=== PATIENT | male | born 1955 | race Caucasian/White ===

== ENCOUNTER 2023-07-16 23:23 | Inpatient (IN) | payer OTHER ==
[2023-07-17 00:36] LABS: Absolute Basophils 0.1 K/uL (0-0.5); Absolute Eosinophils 0.1 K/uL (0-0.5); Absolute Lymphocytes (CBC) 1.3 K/uL (0.7-4.9); Absolute Monocytes 0.7 K/uL (0.1-1.3); Absolute Neutrophil 11.3 K/uL (1.8-8.0); Basophils % 0.5 % (0-1.3); Eosinophils % 0.4 % (0-4.4); Hematocrit 38.5 % (39.6-49.0); Hemoglobin 13.2 g/dL (13.6-17.9); Lymphocytes % 9.5 % (15.3-44.8); MCH 30.7 pg (27.0-35.0); MCHC 34.4 g/dL (32.0-36.0); MCV 89.3 fL (80-100); MPV 7.1 fL (7.6-11.3); Monocytes % 5.2 % (3.3-12.3); Neutrophils % 84.4 % (41.7-73.7); Platelets 188 thou/uL (152-406); RBC Red Blood Cell Count 4.31 M/uL (4.33-5.43); Red Cell Distribution Width 13.6 % (12.1-15.2)
[2023-07-17 00:50] LABS: PT Prothrombin Time 12.2 SECONDS (9.5-12.5); Protime INR 1.11
[2023-07-17 01:02] LABS: Anion Gap 11.2 mEq/L (5.0-15.0); Bilirubin Direct 0.1 mg/dL (0-0.2); Bilirubin Indirect, Calculated 0.5 mg/dL (0.2-0.8); Bilirubin Total 0.6 mg/dL (0.2-1.0); Troponin High Sensitivity 12.6 pg/mL (<58.9)
[2023-07-17 01:03] LABS: Potassium 4.2 mEq/L (3.5-5.1)
[2023-07-17] MEDS ORDERED: MORPHINE 4 MG/ML SYR ONE (01:30)
[2023-07-17] MEDS ORDERED: NA CHLORIDE 0.9% 1,000 ML ONE (01:31)
[2023-07-17] MEDS ORDERED: HYDROMORPHONE HCL 1 MG/ML INJ ONE (03:32)
--- NOTE | 2023-07-17 03:49 | ER ---
Nurse's Notes [facility] Name: Ankit Lopez Age: 67 yrs Sex: Male : 1955 Arrival Date: 07/16/2023 Time: 23:23 Bed 4 Private MD: Diagnosis: Acute pancreatitis without necrosis or infection, unspecified Presentation: 07/15 23:36 Chief complaint: Patient states: I have been having upper abdominal pain all day today. jb4 It started before work, has stayed steady all day and wont go away. Coronavirus screen: At this time, the client does not indicate any symptoms associated with coronavirus-19. Ebola Screen: No symptoms or risks identified at this time. Initial Sepsis Screen: Does the patient meet any 2 criteria? HR > 90 bpm. Yes Does the patient have a suspected source of infection? No. Patient's initial sepsis screen is negative. Risk Assessment: Do you want to hurt yourself or someone else? Patient reports no desire to harm self or others. Onset of symptoms was July 16, 2023. Transition of care: patient was not received from another setting of care. 23:36 Method Of Arrival: Ambulatory jb4 23:36 Acuity: AMAURY 3 jb4 Historical: - Allergies: 23:38 PENICILLINS; jb4 - PMHx: 23:38 HTN; DM; Hyperthyroidism; jb4 - PSHx: 23:38 Tonsillectomy; jb4 - Immunization history:: Adult Immunizations up to date. - Infectious Disease History:: Denies. - Social history:: Smoking status: Patient denies any tobacco usage or history of. Screenin/04 00:22 [facility] ED Fall Risk Assessment (Adult) History of falling in the last 3 months, tm6 including since admission No falls in past 3 months (0 pts). Abuse screen: Denies threats or abuse. Denies injuries from another. Nutritional screening: No deficits noted. Tuberculosis screening: No symptoms or risk factors identified. Assessment: 00:22 General: Appears in no apparent distress. Behavior is calm, cooperative. Pain: tm6 Complains of pain in epigastric area, right upper quadrant and left upper quadrant Pain does not radiate. Pain currently is 5 out of 10 on a pain scale. Quality of pain is described as aching, Pain began 1 day ago. Neuro: No deficits noted. Level of Consciousness is awake, alert, obeys commands, Oriented to person, place, time, situation. Cardiovascular: No deficits noted. Capillary refill < 3 seconds Patient's skin is warm and dry. Rhythm is regular. Respiratory: No deficits noted. Airway is patent Respiratory effort is even, unlabored, Respiratory pattern is regular, symmetrical. GI: Abdomen is round non-distended, Bowel sounds present X 4 quads. Abd is soft and non tender X 4 quads. Reports upper abdominal pain, epigastric pain. : No signs and/or symptoms were reported regarding the genitourinary system. EENT: No signs and/or symptoms were reported regarding the EENT system. Derm: No signs and/or symptoms reported regarding the dermatologic system. Musculoskeletal: No signs and/or symptoms reported regarding the musculoskeletal system. 01:30 Reassessment: Patient appears in no apparent distress at this time. No changes from km8 previously documented assessment. Patient and/or family updated on plan of care and expected duration. Pain level reassessed. Patient is alert, oriented x 3, equal unlabored respirations, skin warm/dry/pink. 02:11 Reassessment: Patient appears in no apparent distress at this time. Patient and/or km8 family updated on plan of care and expected duration. Pain level reassessed. Patient is alert, oriented x 3, equal unlabored respirations, skin warm/dry/pink. Patient states symptoms have improved. 03:25 Reassessment: Patient and/or family updated on plan of care and expected duration. Pain tm6 level reassessed. Patient is alert, oriented x 3, equal unlabored respirations, skin warm/dry/pink. 05:14 Reassessment: report faxed to 2nd floor, confirmed by Sadie DOUGLAS. tm6 05:16 Reassessment: Patient appears in no apparent distress at this time. Patient and/or tm6 family updated on plan of care and expected duration. Pain level reassessed. Patient is alert, oriented x 3, equal unlabored respirations, skin warm/dry/pink. Vital Signs: 07/15 23:36 BP 150 / 88; Pulse 102; Resp 16; Temp 99.4(O); Pulse Ox 100% on R/A; Weight 99.79 kg jb4 (R); Height 6 ft. 2 in. ; Pain 5/10; 07/16 03:25 BP 143 / 74; Pulse 92; Pulse Ox 97% on R/A; Pain 5/10; tm6 05:16 BP 120 / 64; Pulse 89; Resp 19; Pulse Ox 99% on R/A; Pain 0/10; tm6 07/15 23:36 Body Mass Index 28.25 (99.79 kg, 187.96 cm) 4 07/15 23:36 Pain Scale: Adult 4 07/16 03:25 Pain Scale: Adult tm6 05:16 Pain Scale: Adult 6 ED Course: 07/15 23:28 Patient arrived in ED. jj6 23:38 Triage completed. jb4 23:38 Arm band placed on right wrist. jb4 23:41 Aidan Maki PA is PHCP. cp 23:41 Aidan Estrada MD is Attending Physician. cp 07/16 00:00 Murali Varghese, RN is Primary Nurse. tm6 00:21 EKG done, by ED staff, reviewed by Aidan Estrada MD. Inserted saline lock: 20 gauge in tm6 left antecubital area, using aseptic technique. 00:22 Patient has correct armband on for positive identification. Placed in gown. Bed in low tm6 position. Call light in reach. Side rails up X 1. Provided Education on: use of call briggs. Client placed on continuous cardiac and pulse oximetry monitoring. NIBP monitoring applied. manager night on. Pulse ox on. NIBP on. Door closed. Noise minimized. 00:22 Basic Metabolic Panel Sent. tm6 00:22 CBC with Diff Sent. tm6 00:22 LFT's Sent. tm6 00:22 Magnesium Sent. tm6 00:22 PT-INR Sent. tm6 00:22 Troponin HS Sent. tm6 00:22 Lipase Sent. tm6 00:27 XRAY Chest (1 view) In Process Unspecified. EDMS 01:23 CT Abd/Pelvis - Without Contrast In Process Unspecified. EDMS 01:32 US Abdomen Limited: gallbladder In Process Unspecified. EDMS 03:48 Mahin Brooks MD is Hospitalizing Provider. cp 05:15 No provider procedures requiring assistance completed. Patient admitted, IV remains in tm6 place. Administered Medications: 01:38 Drug: morphine IVP or IV 4 mg IVP once over 4 mins Route: IVP; Infused Over: 4 mins; km8 Site: left antecubital; 01:38 Drug: NS 0.9% IV 1000 ml IV at 999 ml/hr Per protocol; 1000 mL bolus Route: IV; Rate: km8 999 ml/hr; Site: left antecubital; 03:56 Follow up: Response: No adverse reaction; IV Status: Completed infusion; IV Intake: tm6 1000ml 03:56 Drug: HYDROmorphone IVP 1 mg IVP once Route: IVP; Site: left antecubital; tm6 03:56 Follow up: Response: Pain is decreased tm6 Medication: 00:22 VIS not applicable for this client. tm6 Intake: 03:56 IV: 1000ml; Total: 1000ml. tm6 Outcome: 03:49 Decision to Hospitalize by Provider. cp 05:15 Admitted to Med/surg accompanied by nurse, room 203, with chart, Report called to 6 Report faxed, confirmed by Sadie DOUGLAS 05:15 Condition: stable 05:15 Instructed on the need for admit, 05:54 Patient left the ED. km8 Signatures: Dispatcher [employer] EDMS Aidan Maki PA PA cp Wilfredo Conner, RN RN jb4 Elenita Berriosj6 Vivian Howell, RN RN km8 Murali Varghese RN RN tm6
--- NOTE | 2023-07-17 03:49 | EDPHYS ---
Physician Documentation [facility] Name: Ankit Lopez Age: 67 yrs Sex: Male : 1955 Arrival Date: 07/16/2023 Time: 23:23 Bed 4 Private MD: ED Aidan Kelley HPI: 07/16 00:00 This 67 yrs old Male presents to ER via Ambulatory with complaints of Abdominal Pain. cp 00:00 The patient presents with abdominal pain in the upper abdomen. Onset: The cp symptoms/episode began/occurred this morning. 00:00 The symptoms are described as constant, dull. cp 00:00 Associated signs and symptoms: Pertinent negatives: chest pain, constipation, diarrhea, cp dysuria, fever, vomiting. Historical: - Allergies: 07/15 23:38 PENICILLINS; jb4 - PMHx: 23:38 HTN; DM; Hyperthyroidism; jb4 - PSHx: 23:38 Tonsillectomy; jb4 - Immunization history:: Adult Immunizations up to date. - Infectious Disease History:: Denies. - Social history:: Smoking status: Patient denies any tobacco usage or history of. ROS: 07/16 00:05 Constitutional: Negative for body aches, chills, fever, poor PO intake, cp 00:05 Eyes: Negative for injury, pain, redness, and discharge, cp 00:05 ENT: Negative for drainage from ear(s), ear pain, sore throat, difficulty swallowing, difficulty handling secretions, 00:05 Cardiovascular: Negative for chest pain, edema, palpitations, 00:05 Respiratory: Negative for cough, shortness of breath, wheezing, 00:05 Abdomen/GI: Positive for abdominal pain, Negative for vomiting, diarrhea, constipation, black/tarry stool, rectal bleeding, 00:05 : Negative for urinary symptoms, testicular pain 00:05 Neuro: Negative for dizziness, headache, weakness, 00:05 All other systems are negative, Exam: 00:00 Constitutional: The patient appears in no acute distress, alert, awake, cp non-diaphoretic, non-toxic, well developed, well nourished, 00:00 Head/Face: Normocephalic, atraumatic. cp 00:00 Eyes: Periorbital structures: appear normal, Conjunctiva: normal, no exudate, no injection, Sclera: no appreciated abnormality, Lids and lashes: appear normal, bilaterally, 00:00 ENT: External ear(s): are unremarkable, Nose: is normal, Mouth: Lips: moist, Oral mucosa: pink and intact, moist, Posterior pharynx: is normal, airway is patent, no erythema, no exudate, 00:00 Chest/axilla: Inspection: normal, 00:00 Cardiovascular: Rate: tachycardic, Rhythm: regular, 00:00 Respiratory: the patient does not display signs of respiratory distress, Respirations: normal, no use of accessory muscles, no retractions, labored breathing, is not present, Breath sounds: are clear throughout, no decreased breath sounds, no stridor, no wheezing, 00:00 Abdomen/GI: Inspection: abdomen appears normal, Palpation: soft, in all quadrants, moderate abdominal tenderness, in the right upper quadrant, left upper quadrant and left lower quadrant, rebound tenderness, is not appreciated, involuntary guarding, is not appreciated, 00:00 Back: pain, that is mild, of the mid back area, ROM is normal, 00:00 Neuro: Orientation: to person, place \T\ time. Mentation: is normal, Motor: moves all fours, strength is normal, Sensation: is normal, 00:15 ECG was reviewed by the Attending Physician. cp Vital Signs: 07/15 23:36 BP 150 / 88; Pulse 102; Resp 16; Temp 99.4(O); Pulse Ox 100% on R/A; Weight 99.79 kg jb4 (R); Height 6 ft. 2 in. ; Pain 5/10; 07/16 03:25 BP 143 / 74; Pulse 92; Pulse Ox 97% on R/A; Pain 5/10; tm6 05:16 BP 120 / 64; Pulse 89; Resp 19; Pulse Ox 99% on R/A; Pain 0/10; tm6 07/15 23:36 Body Mass Index 28.25 (99.79 kg, 187.96 cm) 4 07/15 23:36 Pain Scale: Adult jb4 07/16 03:25 Pain Scale: Adult tm6 05:16 Pain Scale: Adult tm6 MDM: 07/15 23:41 Patient medically screened. cp 07/16 00:00 Differential diagnosis: appendicitis, cholecystitis, Cholelithiasis, diverticulitis, cp non-specific abd pain, pancreatitis, Peptic Ulcer Disease, Perf. Duodenal Ulcer, Perf. Gastric Ulcer, Pyelonephritis, Ureterolithiasis, urinary tract infection. 04:00 Data reviewed: vital signs, nurses notes, lab test result(s), EKG, radiologic studies, cp CT scan, plain films. 04:00 Management of patient was discussed with the following: Hospitalist: DR Brooks will cp admit after discussion. I considered the following discharge prescriptions or medication management in the emergency department Medications were administered in the Emergency Department. See MAR. Independent interpretation of the following test(s) in the Emergency Department EKG: See my EKG interpretation above. Care significantly affected by the following chronic conditions: Diabetes, Hypertension. Counseling: I had a detailed discussion with the patient and/or guardian regarding the historical points, exam findings, and any diagnostic results supporting the discharge/admit diagnosis, lab results, radiology results, the need for further work-up and treatment in the hospital. Response to treatment: the patient's symptoms have markedly improved after treatment, and as a result, I will admit patient. 07/15 23:56 Order name: Basic Metabolic Panel; Complete Time: 01:05 cp 07/16 01:06 Interpretation: Normal except: GLUC 150; BUN 24; CRE 1.64; GFR 46. cp 07/15 23:56 Order name: CBC with Diff; Complete Time: 01:05 cp 07/16 01:06 Interpretation: Normal except: WBC 13.40; RBC 4.31; HGB 13.2; HCT 38.5; MPV 7.1; PREM% cp 84.4; LYM% 9.5; NEUT A 11.3. 07/15 23:56 Order name: LFT's; Complete Time: 01:05 cp 07/16 01:06 Interpretation: Normal except: GLOB 4.0; A/G 1.0. cp 07/15 23:56 Order name: Magnesium; Complete Time: 01:05 cp 07/15 23:56 Order name: PT-INR; Complete Time: 01:05 cp 07/15 23:56 Order name: Troponin HS; Complete Time: 01:05 cp 07/15 23:56 Order name: Lipase; Complete Time: 01:05 cp 07/16 04:24 Order name: Urinalysis w/ reflexes EDMS 07/16 04:24 Order name: CBC with Automated Diff EDMS 07/16 04:24 Order name: CBC with Automated Diff EDMS 07/16 04:24 Order name: Comprehensive Metabolic Panel EDTX 07/16 04:24 Order name: Comprehensive Metabolic Panel EDTX 07/15 23:56 Order name: XRAY Chest (1 view) 07/16 01:09 Order name: CT Abd/Pelvis - Without Contrast cp 07/16 01:09 Order name: US Abdomen Limited: gallbladder 07/15 23:56 Order name: EKG; Complete Time: 23:57 cp 07/16 04:24 Order name: CONS Physician Consult EDTX 07/15 23:56 Order name: Cardiac monitoring; Complete Time: 00:21 cp 07/15 23:56 Order name: EKG - Nurse/Tech; Complete Time: 00:21 cp 07/15 23:56 Order name: IV Saline Lock; Complete Time: 00:21 cp 07/15 23:56 Order name: Labs collected and sent; Complete Time: 00:21 cp 07/15 23:56 Order name: O2 Per Protocol; Complete Time: 00:21 cp 07/15 23:56 Order name: O2 Sat Monitoring; Complete Time: 00:21 cp EC:15 Rate is 92 beats/min. Rhythm is regular. NJ interval is prolonged at 220 msec. QRS cp interval is prolonged at 146 msec. QT interval is normal. T waves are Inverted in lead aVR. Interpreted by me. Reviewed by me. Administered Medications: 01:38 Drug: morphine IVP or IV 4 mg IVP once over 4 mins Route: IVP; Infused Over: 4 mins; km8 Site: left antecubital; 01:38 Drug: NS 0.9% IV 1000 ml IV at 999 ml/hr Per protocol; 1000 mL bolus Route: IV; Rate: km8 999 ml/hr; Site: left antecubital; 03:56 Follow up: Response: No adverse reaction; IV Status: Completed infusion; IV Intake: tm6 1000ml 03:56 Drug: HYDROmorphone IVP 1 mg IVP once Route: IVP; Site: left antecubital; tm6 03:56 Follow up: Response: Pain is decreased tm6 Disposition Summary: 07/17/23 03:49 Hospitalization Ordered Notes: Hospitalization Status: Inpatient Admission cp Provider: Mahin Brooks cp Condition: Stable cp Problem: new cp Symptoms: have improved cp Bed/Room Type: Standard cp Location: Telemetry/MedSurg (Inpatient)(07/17/23 05:03) Room Assignment: 203(07/17/23 05:03) Diagnosis - Acute pancreatitis without necrosis or infection, unspecified cp Forms: - Medication Reconciliation Form cp - SBAR form cp - Leadership Thank You Letter cp Signatures: Dispatcher [employer] EDMS Radha Torres RN RN Aidan Tenorio PA PA cp Wilfredo Conner RN RN jb4 Angeline Holloway 1 Vivian Howell RN RN km8 Murali Varghese, RN RN tm6 Corrections: (The following items were deleted from the chart) 07/15 23:57 23:57 BASIC METABOLIC PANEL+C.LAB.BRZ ordered. EDMS EDMS 23:57 23:57 CBC+H.LAB.BRZ ordered. EDMS EDMS 23:57 23:57 HEPATIC FUNCTION+C.LAB.BRZ ordered. EDMS EDMS 23:57 23:57 MAGNESIUM+C.LAB.BRZ ordered. EDMS EDMS 23:57 23:57 PROTIME (+INR)+COAG.LAB.BRZ ordered. EDMS EDMS 23:57 23:57 Troponin High Sensitivity+C.LAB.BRZ ordered. EDMS EDMS 23:57 23:57 LIPASE+C.LAB.BRZ ordered. EDMS EDMS 07/16 04:52 03:49 Telemetry/MedSurg (Inpatient) cp rv1 04:52 03:49 cp rv1 05:03 04:52 [facility] ER HOLD rv1 kl 05:03 04:52 ERHOLD- rv1 kl
[2023-07-17] MEDS ORDERED: ONDANSETRON 4 MG/2 ML VIAL IV PRN (04:19)
[2023-07-17] MEDS ORDERED: PIPER TAZO 3.375 GM in NA CHLORIDE 0.9% 100 ML IV SCH (04:22)
--- NOTE | 2023-07-17 04:24 | P.HP ---
Certification for Inpatient Patient admitted to: Observation With expected LOS: <2 Midnights Practitioner: I am a practitioner with admitting privileges, knowledge of patient current condition, hospital course, and medical plan of care. Services: Services provided to patient in accordance with Admission requirements found in Title 42 Section 412.3 of the Code of Federal Regulations Patient History Date of Service: 07/17/23 Reason for admission: Abdominal Pain History of Present Illness: 67 yrs old Male with past medical history of hypertension, diabetes, hypothyroidism came to ER with right upper quadrant abdominal pain which has been going on for the last 2 days and has been progressively worsening and was brought to ER. Pain started insidiously located in the right upper quadrant, constant dull aching pain. 4 out of 10 in severity. Nonradiating. Associated with nausea but no vomiting. Denies any chest pain or shortness of breath. No fever or chills. No sick contacts. Denies any dysuria. Patient was assessed in the ER and was admitted for further management CT and ultrasound abdomen was suggestive of possible cholecystitis Allergies Penicillins Allergy (Verified 07/17/23 04:49) Hives/Rash - Past Medical/Surgical History Past Medical History: Reviewed- Non-Contributory -: Hypertension, diabetes, hypothyroidism Past Surgical History: Reviewed- Non-Contributory -: Tonsillectomy - Family History Family History: Reviewed- Non-Contributory - Social History Smoking Status: Never smoker Review of Systems 10-point ROS is otherwise unremarkable Physical Examination - Vital Signs Temperature: 98.2 F Blood Pressure: 128/76 Pulse: 78 Respirations: 18 Pulse Ox (%): 94 - Physical Exam General: Alert, In no apparent distress, Oriented x3, Cooperative HEENT: Atraumatic, Normocephalic Neck: Supple, 2+ carotid pulse no bruit, No LAD Respiratory: Clear to auscultation bilaterally, Normal air movement Cardiovascular: Regular rate/rhythm, Normal S1 S2, No gallops Capillary refill: <2 Seconds Gastrointestinal: Non-distended, W/out hepatosplenomegaly, Tenderness (RUQ tenderness ) Musculoskeletal: No clubbing, No swelling Integumentary: No rashes, No breakdown Neurological: Normal speech, Normal strength at 5/5 x4 extr, Cranial nerves 3-12 intact, Normal reflexes 2+ Lymphatics: No axilla or inguinal lymphadenopathy - Studies Laboratory Data (last 24 hrs) 07/17/23 07/17/23 07/17/23 00:00 00:00 00:00 WBC 13.40 H Hgb 13.2 L Hct 38.5 L Plt Count 188 PT 12.2 INR 1.11 Sodium 137 Potassium 4.2 BUN 24 H Creatinine 1.64 H Glucose 150 H Magnesium 2.0 Total Bilirubin 0.6 AST 15 ALT 28 Alkaline Phosphatase 65 Lipase 307 H Assessment and Plan - Problems (Diagnosis) (1) Acute cholecystitis Current Visit: Yes Status: Acute Plan: Acute cholecystitis N.p.o. for now IV hydration Started on IV antibiotic Monitor closely Surgical consult CT abdomen pelvis as well as ultrasound findings noted Pancreatitis IVF Lipase trended Diabetes Insulin sliding scale Accu-Chek before every meal and at bedtime Acute kidney injury Possibly dehydration Will start on IV fluids Monitor renal parameters Hypertension Antihypertensives titrated GI/DVT prophylaxis Full Code Discharge Plan: Home Plan to discharge in: 48 Hours - Advance Directives Does patient have a Living Will: No Does patient have a Durable POA for Healthcare: No - Code Status/Comfort Care Code Status: Full Code Time Spent Managing Pts Care (In Minutes): 48
[2023-07-17] MEDS: NA CHLORIDE 0.9% 1,000 ML IV SCH ×3 (06:31→23:38)
[2023-07-17] MEDS: Levofloxacin 750mg IV 750 MG/150 ML BAG IV SCH (06:31)
--- NOTE | 2023-07-17 07:08 | P.DS ---
Admission Date: 07/17/23 Discharge Date: 07/17/23 Disposition: ROUTINE DISCHARGE Discharge Condition: GOOD Reason for Admission: Abdominal Pain Brief History of Present Illness: 67 yrs old Male with past medical history of hypertension, diabetes, hypothyroidism came to ER with right upper quadrant abdominal pain which has been going on for the last 2 days and has been progressively worsening and was brought to ER. Pain started insidiously located in the right upper quadrant, constant dull aching pain. 4 out of 10 in severity. Nonradiating. Associated with nausea but no vomiting. Denies any chest pain or shortness of breath. No fever or chills. No sick contacts. Denies any dysuria. Patient was assessed in the ER and was admitted for further management. CT and ultrasound abdomen was suggestive of possible cholecystitis Physical Exam General: Alert, In no apparent distress, Oriented x3, Cooperative HEENT: Atraumatic, Normocephalic Neck: Supple, 2+ carotid pulse no bruit, No LAD Respiratory: Clear to auscultation bilaterally, Normal air movement Cardiovascular: Regular rate/rhythm, Normal S1 S2, No gallops Capillary refill: <2 Seconds Gastrointestinal: Non-distended, W/out hepatosplenomegaly, Tenderness (RUQ tenderness ) Musculoskeletal: No clubbing, No swelling Integumentary: No rashes, No breakdown Neurological: Normal speech, Normal strength at 5/5 x4 extr, Cranial nerves 3-12 intact, Normal reflexes 2+ Lymphatics: No axilla or inguinal lymphadenopathy Hospital Course: 67-year-old male with past medical history of hypertension, diabetes, hypothyroidism came to ER with right upper quadrant abdominal pain. Was noted to have acute cholecystitis. He was evaluated by surgery. Condition improved with surgical evaluation. Patient tolerating diet, stable for discharge to home with follow-up appointment with primary care physician. Follow-up with surgery after discharge PROBLEM: Right upper quadrant abdominal pain treated with as needed and Acute cholecystitis evaluated by surgery Dr. Thompson to evaluate Acute kidney injury treated with IV fluid unknown based Leukocytosis secondary to acute cholecystitis treated with IV antibiotic Rad/Lab/Micro: CT and ultrasound abdomen was suggestive of possible cholecystitis Follow-up with surgery after discharge Continue home medicines as previously prescribed GOAL: Clear understanding of disease process INSTRUCTIONS: Physician Discharge Instructions: -Follow-up with PCP in 1 to 2 weeks -Please call Dr. Hart at [phone] if any questions regarding hospital stay -Please call nursing station at [phone] if any nursing or medication questions -Return to the emergency room if symptoms worsen Diet: ADA, low sodium Activity: Fall precautions Vital Signs/Physical Exam: Temp Pulse Resp BP Pulse Ox 98.2 F 89 19 120/64 94 07/17/23 05:00 07/17/23 05:16 07/17/23 05:16 07/17/23 05:16 07/17/23 05:00 Laboratory Data at Discharge: WBC 13.40 thou/uL (4.3-10.9) H 07/17/23 00:00 Hgb 13.2 g/dL (13.6-17.9) L 07/17/23 00:00 Hct 38.5 % (39.6-49.0) L 07/17/23 00:00 Plt Count 188 thou/uL (152-406) 07/17/23 00:00 PT 12.2 SECONDS (9.5-12.5) 07/17/23 00:00 INR 1.11 07/17/23 00:00 Sodium 137 mEq/L (136-145) 07/17/23 00:00 Potassium 4.2 mEq/L (3.5-5.1) 07/17/23 00:00 BUN 24 mg/dL (7-18) H 07/17/23 00:00 Creatinine 1.64 mg/dL (0.70-1.30) H 07/17/23 00:00 Glucose 150 mg/dL (74-106) H 07/17/23 00:00 Magnesium 2.0 mg/dL (1.6-2.4) 07/17/23 00:00 Total Bilirubin 0.6 mg/dL (0.2-1.0) 07/17/23 00:00 AST 15 U/L (15-37) 07/17/23 00:00 ALT 28 U/L (16-61) 07/17/23 00:00 Alkaline Phosphatase 65 U/L (45-117) 07/17/23 00:00 Lipase 307 U/L (13-75) H 07/17/23 00:00 Followup: Ankit Pickett MD [Primary Care Provider] - Time spent managing pt's care (in minutes): 55
[2023-07-17] MEDS: METRONIDAZOLE 500mg IVPB 500 MG/100 ML BAG IV SCH (09:18)
[2023-07-17] MEDS ORDERED: HYDROMORPHONE HCL 0.5 MG/0.5 ML INJ IV PRN (09:19)
[2023-07-17] MEDS: ENOXAPARIN 40 MG/0.4 ML SQ SCH (09:19)
[2023-07-17] MEDS ORDERED: GLUCAGON 1 MG/VIAL IM PRN (09:20)
[2023-07-17] MEDS ORDERED: D50W 25 GM/50 ML SYRINGE IV PRN (09:20)
[2023-07-17 10:31] LABS: Urine Bilirubin NEGATIVE (Negative); Urine Blood Negative (Negative); Urine Clarity Clear (Clear); Urine Color Colorless (Yellow); Urine Glucose 4+ (Over) (Negative); Urine Ketones TRACE (Negative); Urine Microscopic Reflex YN NO UMIC; Urine Nitrite NEGATIVE (Negative); Urine Protein NEGATIVE (Negative); Urine Urobilinogen Normal (Normal); Urine pH 5.5 (5.0-7.0)
[2023-07-17] MEDS: INSULIN REGULAR (HUMAN) 100 UNIT/ML SQ SCH ×2 (11:30→16:30)
--- NOTE | 2023-07-17 11:41 | P.PN ---
Date of Service: 07/17/23 Patient was seen and examined. Mr. Ankit Frank presented to the emergency room with abdominal pain. His workup revealed mild elevation of the lipase level and CT scan showed some minimal peripancreatic stranding suggestive of acute pancreatitis. There was no gallbladder wall distention or common bile duct dilatation. Patient does have sludge in the gallbladder. LFTs are within normal limits. Patient with type 2 diabetes and recently started Ozempic. Patient was on the lowest dose possible and has been on it for 9 weeks. This is the most likely etiology of patient's mild pancreatitis. Will recommend stopping GLP-1 agonist for the time being. Patient's pain is minimal and we will go ahead and start him on full liquid diet. Patient can follow-up with surgery as an outpatient as needed. Assessment: 1. Pancreatitis secondary to GLP-1 agonist; continue with aggressive IV hydration. DC Ozempic. Will start on clear liquid diet and advance as tolerated. 2. Hypertension/type 2 diabetes; this is probably in the setting of metabolic syndrome. Continue with weight loss and diet control. Anticipate outpatient follow-up in 1 to 2 weeks.
--- NOTE | 2023-07-17 14:00 | CON ---
Date of Consultation: 07/17/2023 Diagnosis: Acute pancreatitis. History Of Present Illness: This is a case of a 67-year-old patient, who comes with epigastric pain for about 2 days of duration and came to the ER as soon as he was not getting better and diagnosed wi th acute pancreatitis on imaging and blood work. During the workup, he was found to have sludge in t he gallbladder and they asked me to see the patient for that problem. Something of concern is that arpita rodrigues started taking Ozempic a little than more than a month ago and then he started having these issues with epigastric pain. He denies any dysuria, hematuria, hematochezia, melena. Denies any traveling o ut of the country. Denies any family member sick at home. Denies any alcohol intake. Allergies: PENICILLIN. Family History: Noncontributory. Social History: He does not smoke. He does not drink alcohol. Past Surgical History: Tonsillectomy. Physical Examination: General: The patient is awake and alert. HEENT: Pupils are equal and reactive. Anicteric. Neck: Supple. Chest: Clear. Heart: S1, S2. Abdomen: Epigastric mild tenderness. No guarding or rebound. Extremities: Good capillary refill. Laboratory Data: Blood work shows a WBC count of 13.4 with a hematocrit of 38.5, platelets of 188. INR is 1.1, creatinine is 1.64, glucose 150, lipase 307. LFTs within normal limits. Calcium 9.1. U ltrasound and CAT scan of the abdomen and pelvis reflected pancreatic inflammation and sludge, but no gallbladder thickening or cholecystitis. Assessment: This is a 67-year-old patient with acute pancreatitis. Etiology is unknown, does not se em to be related to the gallbladder at this moment. LFTs are normal. There is no pericholecystic fl uid. No swelling of the gallbladder. Does have some sludge in that region. Lipase is elevated. In somnia of concern. He has a new medication, which is Ozempic recently, so the medical doctors are aamir thorpe to see if there is any relation with this and the medication. From the surgical standpoint, nash latricia though we are going to expect surgery at this moment, he is still advised to come to my office, so we can discuss gallbladder disease, sludge with options we have for those and trying to differentiate the pain caused by the gallbladder versus pain caused by the pancreas itself. GIRMA/SHANIQUA Voice ID: [id number] Report ID: [id number]
[2023-07-17 15:08] VITALS: O2SAT 96
[2023-07-17] MEDS: ACETAMINOPHEN 325 MG TABLET PO PRN (20:01)
[2023-07-17] MEDS: TAMSULOSIN 0.4 MG SR CAP PO SCH (20:02)
[2023-07-17] MEDS: METOPROLOL TAR 25 MG TAB PO SCH (20:02)
[2023-07-17] MEDS: ATORVASTATIN 10 MG TAB PO SCH (20:02)
--- NOTE | 2023-07-17 22:57 | RAD REPORT ---
EXAM DESCRIPTION: CT - Abdomen Pelvis Wo Contrast - 07/17/2023 10:38 am CLINICAL HISTORY: 67 years Male; ABD PAIN; NO CONTRAST Bed Name: 4 TECHNIQUE: CT of the abdomen and pelvis without contrast. All CT scans at this facility use dose modulation, iterative reconstruction, and/or weight based dosi ng when appropriate to reduce radiation dose to as low as reasonably achievable. COMPARISON: None. FINDINGS: Lower thorax: Bibasilar atelectasis. Abdomen: Stomach: Within normal limits Liver: No focal lesions. No intrahepatic ductal distention. Gallbladder: Nondistended Pancreas: Mild stranding surrounding the pancreas. Spleen: Within normal limits Right kidney: No hydronephrosis. No renal or ureteral calculi. Left kidney: No hydronephrosis. No renal or ureteral calculi. Adrenal glands: Within normal limits Vascular structures: Atherosclerosis of the abdominal aorta and major branches. Lymph nodes: No lymphadenopathy by size criteria Pelvis: Small bowel: No significant distention. Appendix: Within normal limits Colon: No distention or acute pericolonic edema. Peritoneum: No free intraperitoneal fluid or air. Bones: No acute bone findings. Bladder: Unremarkable. Reproductive organs: No acute findings. Soft tissues: Moderate right and small left fat-containing inguinal hernias. IMPRESSION: Mild stranding surrounding the pancreas, can be seen in setting of acute pancreatitis. C orrelate with amylase/lipase levels. Electronically signed by: Alonzo Fontaine MD 07/17/2023 03:28 AM CDT Due to temporary technical issues with the PACS/Fluency reporting system, reports are being signed by the in house radiologists without review as a courtesy to insure prompt reporting. The interpreting radiologist is fully responsible for the content of the report.
--- NOTE | 2023-07-17 22:58 | RAD REPORT ---
EXAM DESCRIPTION: RAD - Chest Single View - 07/17/2023 12:25 am CLINICAL HISTORY: The patient is 67 years old and is Male; upper abdomen pain TECHNIQUE: Frontal view of the chest. COMPARISON: No relevant prior studies available. FINDINGS: Lungs: Unremarkable. No consolidation. Pleural space: Unremarkable. No pneumothorax. Heart: Unremarkable. Mediastinum: Unremarkable. Normal mediastinal contour. Bones/joints: No acute findings. IMPRESSION: No acute findings in the chest. Electronically signed by: Flaco Mckeon MD 07/17/2023 01:57 AM CDT Due to temporary technical issues with the PACS/Fluency reporting system, reports are being signed by the in house radiologists without review as a courtesy to insure prompt reporting. The interpreting radiologist is fully responsible for the content of the report.
--- NOTE | 2023-07-17 23:00 | RAD REPORT ---
EXAM DESCRIPTION: US - Abdomen Exam Limited - 07/17/2023 1:30 am US Abdomen Limited, Gallbladder CLINICAL HISTORY: The patient is 67 years old and is Male; upper abdomen pain Bed Name: 4 TECHNIQUE: Real-time ultrasound of the right upper quadrant with image documentation. COMPARISON: 07/17/2023 CT abdomen pelvis without contrast FINDINGS: GALLBLADDER: Minimal sludge demonstrated within the gallbladder fossa. No gallbladder wall thickening or surrounding free fluid. No posterior shadowing stones. COMMON BILE DUCT: Unremarkable as visualized. No stones. No dilation. Common bile duct measures 0.6 cm in diameter. IMPRESSION: Minimal gallbladder sludge. Otherwise, no acute findings in the right upper quadrant. Electronically signed by: Miguel A Aguilar MD 07/17/2023 03:34 AM CDT Due to temporary technical issues with the PACS/Fluency reporting system, reports are being signed by the in house radiologists without review as a courtesy to insure prompt reporting. The interpreting radiologist is fully responsible for the content of the report.
[2023-07-18 04:40] VITALS: BMI 28.1
[2023-07-18 07:21] LABS: Albumin 3.1 g/dL (3.4-5.0); Albumin/Globulin Ratio 0.9 (1.1-1.8); Anion Gap 7.7 mEq/L (5.0-15.0); Bilirubin Total 0.9 mg/dL (0.2-1.0); Globulin 3.3 g/dL (2.3-3.5); Potassium 3.7 mEq/L (3.5-5.1); Protein, Total 6.4 g/dL (6.4-8.2)
[2023-07-18] MEDS: NA CHLORIDE 0.9% 1,000 ML IV SCH (07:31)
[2023-07-18 08:19] LABS: Hematocrit 33.3 % (39.6-49.0); Hemoglobin 11.1 g/dL (13.6-17.9); MCH 30.1 pg (27.0-35.0); MCHC 33.3 g/dL (32.0-36.0); MCV 90.4 fL (80-100); Platelets 124 thou/uL (152-406); RBC Red Blood Cell Count 3.68 M/uL (4.33-5.43); Red Cell Distribution Width 13.3 % (12.1-15.2)
[2023-07-18 08:20] LABS: Absolute Lymphocytes (CBC) 1.3 K/uL (0.7-4.9); Absolute Monocytes 0.8 K/uL (0.1-1.3); Basophils % 0.4 % (0-1.3); Eosinophils % 0.2 % (0-4.4); Lymphocytes % 11.4 % (15.3-44.8); Monocytes % 7.4 % (3.3-12.3); Neutrophils % 80.6 % (41.7-73.7)
--- NOTE | 2023-07-18 08:27 | P.PN ---
Subjective Date of Service: 07/18/23 Chief Complaint: Abdominal Pain N.p.o. for surgery eval, pain control as needed analgesia - Physical Exam General: Alert, In no apparent distress, Oriented x3, Obese HEENT: Atraumatic, Normocephalic Neck: Supple, JVD not distended Respiratory: Clear to auscultation bilaterally, Normal air movement Cardiovascular: No edema, Normal pulses Capillary refill: <2 Seconds Gastrointestinal: Hypoactive, Other (Obese, large abdominal hernia), Tenderness Musculoskeletal: No swelling, No contractures Integumentary: No breakdown, No significant lesion Neurological: Normal speech, Normal strength at 5/5 x4 extr Review of Systems Per HPI Physical Examination - Vital Signs Temperature: 99.3 F Blood Pressure: 120/65 Pulse: 85 Respirations: 16 Pulse Ox (%): 98 Assessment And Plan - Plan Assessment and Plan Acute cholecystitis Abdominal pain Leukocytosis improving N.p.o. for now IV hydration Started on IV antibiotic Monitor closely Surgical consult-Dr. Thompson CT abdomen pelvis as well as ultrasound findings noted On Ozempic, needs to follow-up with surgery to discuss abdominal pain on Ozempic CT of the abdomen pelvis IMPRESSION: Mild stranding surrounding the pancreas, can be seen in setting of acute pancreatitis. Correlate with amylase/lipase levels. Abdominal ultrasound IMPRESSION: Minimal gallbladder sludge. Otherwise, no acute findings in the right upper quadrant. Pancreatitis Breast IV fluid Lipase trended Lipase 633, trend Diabetes Insulin sliding scale Accu-Chek before every meal and at bedtime UA positive for glucosuria, trace ketone Acute kidney injury Possibly dehydration Will start on IV fluids Monitor renal parameters Hypertension Antihypertensives titrated GI/DVT prophylaxis Full Code Discharge Plan: Home - Code Status/Comfort Care Code Status: Full Code Critical Care: No Time Spent Managing PTS Care (In Minutes): 35
[2023-07-18] MEDS: **PT MED**Dapagliflozin Propanediol [Farxiga] 10 MG Tablet PO SCH (09:00)
[2023-07-18 09:23] LABS: Band Neutrophils 4 % (0-1); Blood Morphology Comment NOT SEEN (NOT SEEN); Differential Total Cells Count 100; Dohle Bodies PRESENT; Eosinophils 1 % (0-3); Lymphocytes 14 % (15-42); Monocytes 3 % (0-10); Platelet Estimate DECR; Segmented Neutrophils 78 % (40-80); White Blood Cell Scan OK (OK)
[2023-07-18] MEDS: lisinopriL 20 MG TAB PO SCH (09:29)
[2023-07-18] MEDS: glyBURIDE 2.5 MG TAB PO SCH (09:30)
[2023-07-18] MEDS: LEVOTHYROXINE SOD 0.125 MG TAB PO SCH (09:30)
[2023-07-18 12:03] LABS: Albumin/Globulin Ratio 0.8 (1.1-1.8); Anion Gap 7.5 mEq/L (5.0-15.0); Bilirubin Total 0.6 mg/dL (0.2-1.0); Globulin 3.6 g/dL (2.3-3.5); Magnesium 2.1 mg/dL (1.6-2.4); Potassium 3.5 mEq/L (3.5-5.1); Protein, Total 6.6 g/dL (6.4-8.2)
[2023-07-18] MEDS: POTASS/SODIUM PHOSPHATE 1 PKT POWD.PACK PO ONE (12:47)
[2023-07-18 13:10] VITALS: BP 121/64; TEMP 97.6
--- NOTE | 2023-07-19 14:44 | EKG ---
Test Date: 2023-07-17 Test Time: 00:09:57 Process Maintenance Technician: ELIZABET MEASUREMENT RESULTS: Intervals: Rate: 92 WV: 220 QRSD: 146 QT: 390 QTc: 482 Hollister: P: 78 WV: 220 QRS: -61 T: 31 INTERPRETIVE STATEMENTS: Sinus rhythm with 1st degree AV block Right bundle branch block Left anterior fascicular block Bifascicular block Abnormal ECG No previous ECG available for comparison Electronically Signed On 07-19-23 14:39:31 CDT by Jonathan Ware
== END 2023-07-18 16:43 | disposition home or self-care (01) | DRG 439 ==
LOC: ER 23:23 → ERHOLD 07-17 04:19 → 2ND 07-17 05:47
PROVIDERS: ADMIT Family Medicine; ATTEND Hospitalist
DX: K85.90 Acute pancreatitis without necrosis or infection, unspecified (principal); N17.9 Acute kidney failure, unspecified; E11.9 Type 2 diabetes mellitus without complications; E03.9 Hypothyroidism, unspecified; I10 Essential (primary) hypertension; Z88.0 Allergy status to penicillin
CPT/HCPCS: 36415; 71045; 74176; 76705; 80048; 80053; 80061; 80076; 81003; 82947; 83690; 83735; 84100; 84145; 84484; 85025; 85610; 93005; 96361; 96374; 96375; 99285; J1170; J1650; J7030

== ENCOUNTER 2025-01-06 15:21 | Emergency (ER) | payer OTHER ==
[2025-01-06 16:52] LABS: Absolute Lymphocytes (CBC) 1.6 K/uL (0.7-4.9); Hematocrit 37.9 % (39.6-49.0); Hemoglobin 12.8 g/dL (13.6-17.9); MCH 29.9 pg (27.0-35.0); MCHC 33.7 g/dL (32.0-36.0); MCV 88.8 fL (80-100); MPV 7.2 fL (7.6-11.3); Nucleated RBC Absolute Count 0.0 (0-0); Nucleated Red Blood Cells % 0.1 % (0-0); RBC Red Blood Cell Count 4.27 M/uL (4.33-5.43); White Blood Count 8.60 thou/uL (4.3-10.9)
--- NOTE | 2025-01-06 16:55 | RAD REPORT ---
EXAM:Extremity Venous Uni Ltd HISTORY: Left leg pain TECHNIQUE: Sonographic evaluation left lower extremity performed.Grayscale, color and spectral analys is performed on all vessels COMPARISON: None. FINDINGS: Echogenic material consistent with acute thrombus is present within the left common femoral, left gre ater saphenous, left superficial femoral and left popliteal veins. Most of the thrombus is occlusive. Left posterior tibial vein patent IMPRESSION: Extensive acute thrombus left lower extremity
[2025-01-06 17:04] LABS: PT Prothrombin Time 12.8 SECONDS (10-13.0); PTT, Activated Partial Thromb 29.0 SECONDS (27.2-37.4); Protime INR 1.14
[2025-01-06] MEDS ORDERED: APIXABAN 5 MG TABLET ONE (17:13)
[2025-01-06 17:23] LABS: ALT/SGPT 22.0 U/L (16-61); Albumin 3.9 g/dL (3.4-5.0); Albumin/Globulin Ratio 1.0 (1.1-1.8); Alkaline Phosphatase 66.0 U/L (45-117); Anion Gap 10.2 mEq/L (5.0-15.0); BUN Blood Urea Nitrogen 38.0 mg/dL (7-18); Globulin 4.1 g/dL (2.3-3.5); Glucose Level 119.0 mg/dL (74-106)
[2025-01-06 17:25] LABS: AST/SGOT 28.0 U/L (15-37); Potassium 5.2 mEq/L (3.5-5.1)
--- NOTE | 2025-01-06 17:44 | ER ---
Nurse's Notes [facility] Name: Ankit Lopez Age: 69 yrs Sex: Male : 1955 Arrival Date: 01/06/2025 Time: 15:21 Bed 4 Private MD: Diagnosis: Acute embolism and thrombosis of unspecified deep veins of left lower extremity Presentation: 01/06 15:27 Chief complaint: Patient states: HE WOKE UP YESTERDAY MORNING, UNABLE TO PUT WEIGHT ON dd2 LEFT LEG AND NOTICED SWELLING FROM KNEE DOWN TO FOOT. PT REPORTS LT HIP REPLACEMENT IN OCTOBER. Coronavirus screen: At this time, the client does not indicate any symptoms associated with coronavirus-19. Ebola Screen: No symptoms or risks identified at this time. Initial Sepsis Screen: Does the patient meet any 2 criteria? No. Patient's initial sepsis screen is negative. Does the patient have a suspected source of infection? No. Patient's initial sepsis screen is negative. Risk Assessment: Do you want to hurt yourself or someone else? Patient reports no desire to harm self or others. Onset of symptoms was January 05, 2025. 15:27 Method Of Arrival: Ambulatory dd2 15:27 Acuity: AMAURY 3 dd2 Triage Assessment: 15:30 General: Appears in no apparent distress. uncomfortable, Behavior is calm, cooperative, dd2 appropriate for age. Pain: Complains of pain in left leg Pain currently is 4 out of 10 on a pain scale. Derm: Skin is red, LT LEG Skin temperature is warm TO LT LEG. Musculoskeletal: Swelling present in left leg Reports pain in left leg. Historical: - Allergies: 15:29 PENICILLINS; dd2 - PMHx: 15:29 DM; HTN; hyperthyroidism; dd2 - PSHx: 15:29 Tonsillectomy; dd2 15:30 LT HIP REPLACEMENT; dd2 - Immunization history:: Adult Immunizations up to date. - Infectious Disease History:: Denies. - Social history:: Smoking status: Patient denies any tobacco usage or history of. Screenin:43 [facility] ED Fall Risk Assessment (Adult) History of falling in the last 3 months, bp including since admission No falls in past 3 months (0 pts) Confusion or Disorientation No (0 pts) Intoxicated or Sedated No (0 pts) Impaired Gait No (0 pts) Mobility Assist Device Used No (0 pt) Altered Elimination No (0 pt) Score/Fall Risk Level 0 - 2 = Low Risk Oriented to surroundings. Abuse screen: Denies threats or abuse. Denies injuries from another. Nutritional screening: No deficits noted. Tuberculosis screening: No symptoms or risk factors identified. Assessment: 15:30 General: SEE TRIAGE. bp 17:49 Reassessment: Patient appears in no apparent distress at this time. Patient is alert, bp oriented x 3, equal unlabored respirations, skin warm/dry/pink. Vital Signs: 15:27 BP 121 / 86; Pulse 87; Resp 16; Temp 98.2; Pulse Ox 98.2% on R/A; Weight 90.72 kg; dd2 Height 6 ft. 2 in. ; Pain 4/10; 17:49 BP 127 / 79; Pulse 75; Resp 16; Pulse Ox 98% ; bp 15:27 Body Mass Index 25.68 (90.72 kg, 187.96 cm) dd2 15:27 Pain Scale: Adult dd2 ED Course: 15:25 Patient arrived in ED. ts1 15:28 Gwen Shi FNP-C is PHCP. kb 15:28 Prashant Hannah MD is Attending Physician. kb 15:29 Triage completed. dd2 15:30 Arm band placed on right wrist. dd2 15:36 Francois Jim, STELLA is Primary Nurse. bp 16:20 US Extremity Venous Unilateral Ltd In Process Unspecified. EDMS 16:43 Patient has correct armband on for positive identification. bp 16:43 Inserted saline lock: 20 gauge in left antecubital area, using aseptic technique. Blood bp collected. Flushed with 10 mL NS. 17:49 No provider procedures requiring assistance completed. IV discontinued, intact, bp bleeding controlled, No redness/swelling at site. Pressure dressing applied. Administered Medications: 17:15 Drug: Eliquis PO 10 mg PO once Route: PO; bp 17:20 Follow up: Response: No adverse reaction bp 17:50 Follow up: Response: No adverse reaction bp Medication: 17:49 VIS not applicable for this client. bp Outcome: 17:43 Discharge ordered by . kb 17:49 Discharged to home ambulatory, bp 17:49 Condition: stable 17:49 Discharge instructions given to patient, Instructed on discharge instructions, follow up and referral plans. medication usage, Demonstrated understanding of instructions, follow-up care, medications, Prescriptions given X 1, 17:50 Patient left the ED. bp Signatures: Dispatcher [employer] EDGwen Tom, SMITA-Rodreick ORDOÑEZ-Francois Michael, RN RN Ora Deutsch PAS PAS ts1 STEVE FINLEY RN RN dd2
--- NOTE | 2025-01-06 17:44 | EDPHYS ---
Physician Documentation [facility] Name: Ankit Lopez Age: 69 yrs Sex: Male : 1955 Arrival Date: 01/06/2025 Time: 15:21 Bed 4 Private MD: ED Physician Prashant Hannah HPI: 01/06 17:25 This 69 yrs old Male presents to ER via Ambulatory with complaints of Leg Pain, Leg kb Swelling. 17:27 Pt is a 69 year old male who presents for swelling and redness to left lower leg that kb started yesterday. Reports he had a hip replacement in October and was on eliquis for one month, but doesn't take blood thinners normally. Denies fever, n/v, shortness of breath. Historical: - Allergies: 15:29 PENICILLINS; dd2 - PMHx: 15:29 DM; HTN; hyperthyroidism; dd2 - PSHx: 15:29 Tonsillectomy; dd2 15:30 LT HIP REPLACEMENT; dd2 - Immunization history:: Adult Immunizations up to date. - Infectious Disease History:: Denies. - Social history:: Smoking status: Patient denies any tobacco usage or history of. ROS: 17:25 Constitutional: As per HPI kb Exam: 17:25 Constitutional: This is a well developed, well nourished patient who is awake, alert, kb and in no acute distress. Head/Face: Normocephalic, atraumatic. ENT: Moist Mucous membranes Cardiovascular: Regular rate Respiratory: Respirations even and unlabored. No increased work of breathing. Talking in full sentences Skin: Warm, dry with normal turgor. Normal color. Neuro: Awake and alert, GCS 15, oriented to person, place, time, and situation. 17:25 Musculoskeletal/extremity: Extremities: grossly normal except: noted in the left lower leg: erythema, swelling, ROM: intact in all extremities, Circulation is intact in all extremities. Sensation intact. Weight bearing: able to fully bear weight, Vital Signs: 15:27 BP 121 / 86; Pulse 87; Resp 16; Temp 98.2; Pulse Ox 98.2% on R/A; Weight 90.72 kg; dd2 Height 6 ft. 2 in. ; Pain 4/10; 17:49 BP 127 / 79; Pulse 75; Resp 16; Pulse Ox 98% ; bp 15:27 Body Mass Index 25.68 (90.72 kg, 187.96 cm) dd2 15:27 Pain Scale: Adult dd2 MDM: 15:28 Medical Screening Exam initiated kb 17:43 Data reviewed: vital signs, nurses notes. kb 17:49 Differential diagnosis: cellulitis, dvt, pe. Consideration of Admission/Observation kb admission considered but vital signs stable, pt will return for any shortness of breath or other concerns. Management of patient was discussed with the following: Dr Hannah. Counseling: I had a detailed discussion with the patient and/or guardian regarding the historical points, exam findings, and any diagnostic results supporting the discharge/admit diagnosis, lab results, radiology results, the need for outpatient follow up, a family practitioner, to return to the emergency department if symptoms worsen or persist or if there are any questions or concerns that arise at home. 01/06 16:16 Order name: CBC with Diff; Complete Time: 16:56 kb 01/06 16:16 Order name: CMP; Complete Time: 17:28 kb 01/06 16:16 Order name: Protime (+inr); Complete Time: 17:05 kb 01/06 16:16 Order name: Ptt, Activated; Complete Time: 17:05 kb 01/06 15:32 Order name: US Extremity Venous Unilateral Ltd; Complete Time: 16:56 kb Administered Medications: 17:15 Drug: Eliquis PO 10 mg PO once Route: PO; bp 17:20 Follow up: Response: No adverse reaction bp 17:50 Follow up: Response: No adverse reaction bp Disposition: 18:11 Co-signature as Attending Physician, Prashant Hannah MD I reviewed the patient's care rn provided by the Advanced Practice Provider and agree with the diagnosis and treatment plan. Disposition Summary: 01/06/25 17:43 Discharge Ordered Notes: Location: Home kb Condition: Stable kb Diagnosis - Acute embolism and thrombosis of unspecified deep veins of left lower extremity kb Followup: kb - With: Emergency Department - When: As needed - Reason: Worsening of condition Followup: kb - With: Private Physician - When: 2 - 3 days - Reason: Recheck today's complaints, Continuance of care, Re-evaluation by your physician Discharge Instructions: - Discharge Summary Sheet kb - Deep Vein Thrombosis kb Forms: - Medication Reconciliation Form kb - Antibiotic Education kb - Prescription Opioid Use kb - Patient Portal Instructions kb - Leadership Thank You Letter kb Prescriptions: - Eliquis DVT-PE Treat 30D Start 5 mg (74 tabs) Oral Tablet, Dose Pack - take 2 tablet ORAL route 2 times per day for 7 days Take 2 tablets BID for 7 kb days, then 1 tablet BID; 74 tablet; Refills: 0, Product Selection Permitted Signatures: Dispatcher [employer] Gwen Crawley, JAMES ORDOÑEZ-Prashant Ch MD MD rn Peltier, Brian, RN RN bp DAVIS, DIANA, RN RN dd2
[2025-01-06 18:52] VITALS: TEMP 98.2
[2025-01-06 18:58] VITALS: BP 127/79; O2SAT 98
== END 2025-01-06 17:50 | disposition home or self-care (01) ==
LOC: ER 15:21 → SUPCPDRO 15:21 → ER 17:50
DX: I82.492 Acute embolism and thrombosis of other specified deep vein of left lower extremity (principal); Z96.642 Presence of left artificial hip joint
CPT/HCPCS: 36415; 80053; 85025; 85610; 85730; 93971; 99284